=== PATIENT | male | born 1955 | race Hispanic/Latino ===

== ENCOUNTER 2017-04-23 06:00 | Emergency (ER) | payer BC ==
[2017-04-23 06:01] VITALS: BMI 33.3
[2017-04-23] MEDS ORDERED: Sodium Chloride 0.9% 2,000 ML IV STA (07:41)
--- NOTE | 2017-04-23 07:41 | ED PDOC ---
Arrival/HPI - General Chief Complaint: Fever Time Seen by Provider: 04/23/17 07:18 Historian: Patient, Family - History of Present Illness Narrative History of Present Illness (Text): 04/23/17 07:20 Harshil Gregorio is a 61 year old male, who presents to the emergency department accompanied by family, with complaints of vomiting and fatigue since early this morning. Family member reports patient went to their PMD two weeks ago who prescribed him medication for the flu, but no improvement has been made. She also states finding patient in the bathroom floor because he was too weak to get up after vomiting. Patient has been nauseous since yesterday and notes having a fever all week. Patient denies shortness of breath, chest pain, headache, or other complaints. PMD: Dr. Rooney Time/Duration: > week Symptom Onset: Gradual Symptom Course: Worsening Context: Home Past Medical History - Provider Review Nursing Documentation Reviewed: Yes - Past History Past History: No Previous - Infectious Disease Hx of Infectious Diseases: None - Tetanus Immunization Tetanus Immunization: Unknown - Cardiac Hx Cardiac Disorders: No - Pulmonary Hx Respiratory Disorders: No - Neurological Hx Neurological Disorder: No - HEENT Hx HEENT Disorder: No - Renal Hx Renal Disorder: No - Endocrine/Metabolic Hx Endocrine Disorders: No - Hematological/Oncological Hx Blood Disorders: No - Integumentary Hx Dermatological Disorder: No - Musculoskeletal/Rheumatological Hx Musculoskeletal Disorders: No - Gastrointestinal Hx Gastrointestinal Disorders: No - Genitourinary/Gynecological Hx Genitourinary Disorders: No - Psychiatric Hx Psychophysiologic Disorder: No Hx Depression: No Hx Emotional Abuse: No Hx Physical Abuse: No Hx Substance Use: No - Past Surgical History Past Surgical History: No Previous - Surgical History Other/Comment: sinus - Anesthesia Hx Anesthesia: Yes Hx Anesthesia Reactions: No Hx Malignant Hyperthermia: No - Suicidal Assessment Feels Threatened In Home Enviroment: No Family/Social History - Physician Review Nursing Documentation Reviewed: Yes Family/Social History: Unknown Family HX Smoking Status: Never Smoked Hx Alcohol Use: No Hx Substance Use: No Hx Substance Use Treatment: No Allergies/Home Meds Allergies/Adverse Reactions: Allergies Penicillins Adverse Reaction (Verified 04/23/17 06:18) VOMITING Home Medications: Home Meds Medication Instructions Recorded Confirmed Cephalexin [cephalexin] 500 mg PO Q12H 04/23/17 04/23/17 Review of Systems - Review of Systems Constitutional: Fatigue, Fevers ENT: absent: Sore Throat Respiratory: absent: SOB Cardiovascular: absent: Chest Pain Gastrointestinal: Nausea, Vomiting. absent: Diarrhea Genitourinary Male: absent: Dysuria Musculoskeletal: absent: Back Pain Skin: absent: Rash Neurological: absent: Dizziness Endocrine: absent: Diaphoresis Hemo/Lymphatic: absent: Adenopathy Physical Exam Vital Signs Reviewed: Yes Vital Signs Temp Pulse Resp BP Pulse Ox 04/23/17 10:11 98.3 F 72 18 103/54 L 95 04/23/17 08:13 79 18 122/66 95 04/23/17 06:13 98.3 F 89 18 117/79 96 Temperature: Afebrile Blood Pressure: Normal Pulse: Regular Respiratory Rate: Normal Appearance: Positive for: Well-Appearing, Non-Toxic, Comfortable Pain Distress: None Mental Status: Positive for: Alert and Oriented X 3 - Systems Exam Head: Present: Atraumatic, Normocephalic Pupils: Present: PERRL Extroacular Muscles: Present: EOMI Conjunctiva: Present: Normal Respiratory/Chest: Present: Clear to Auscultation, Good Air Exchange. No: Respiratory Distress, Accessory Muscle Use, Wheezes, Rales, Retracting, Rhonchi Cardiovascular: Present: Regular Rate and Rhythm, Normal S1, S2. No: Murmurs Abdomen: Present: Normal Bowel Sounds. No: Tenderness, Distention, Peritoneal Signs, Rebound, Guarding Neurological: Present: GCS=15, CN II-XII Intact, Speech Normal Skin: Present: Warm, Dry, Normal Color. No: Rashes Psychiatric: Present: Alert, Oriented x 3, Normal Insight, Normal Concentration Medical Decision Making ED Course and Treatment: 04/23/17 Impression: 61 year old male with unremarkable physical exam complaining of vomiting, weakness, and fever. Plan: -- EKG -- Chest X-ray -- Labs -- Toradol, Zofran, and Sodium Chloride -- Urinalysis -- Reassess and disposition Progress Notes: 04/23/17 EKG: Ordered, reviewed, and independently interpreted the EKG. Rate : 92 BPM Rhythm : NSR Interpretation : No ST-segment elevations or depressions, no T-wave inversions, normal intervals. 04/23/17 08:40 Chest X-ray: Creator : Ender Lewis MD COMPARISON: 05/30/2015 FINDINGS: LUNGS: No active pulmonary disease. PLEURA: No significant pleural effusion identified, no pneumothorax apparent. CARDIOVASCULAR: Normal. OSSEOUS STRUCTURES: No significant abnormalities. VISUALIZED UPPER ABDOMEN: Normal. OTHER FINDINGS: None. IMPRESSION: No active disease. 04/23/17 11:[address] Rooney, patient's PMD, who is aware of plan and treatment. He agrees to see him in the office tomorrow morning. On reevaluation the patient feels better and is in no acute distress. I have discussed the results and plan with the patient, who expresses understanding. Patient given the opportunity to ask question, all questions were answered and there is agreement with the plan to discharge the patient home with prescription for antibiotics to treat UTI. Patient is stable for discharge. Patient was instructed to follow up with PMD. - Lab Interpretations Lab Results: 04/23/17 06:30 04/23/17 06:30 Lab Results 04/23/17 09:10: Influenza Typ A,B (EIA) Negative for flu a/b 04/23/17 08:20: Urine Color Dark yellow, Urine Appearance Slight-cloudy, Urine pH 5.5, Ur Specific [place] 1.025, Urine Protein 30 H, Urine Glucose (UA) Negative, Urine Ketones Trace H, Urine Blood Negative, Urine Nitrate Positive H , Urine Bilirubin Moderate H, Urine Urobilinogen 2.0 H, Ur Leukocyte Esterase Negative, Urine RBC Negative, Urine WBC 2 - 5, Ur Epithelial Cells None 04/23/17 06:30: Sodium 137, Chloride 101, Potassium 3.4 L, Carbon Dioxide 24, Anion Gap 15, BUN 14, Creatinine 1.3, Est GFR ( Amer) > 60, Est GFR (Non- Af Amer) 56, Random Glucose 166 H, Calcium 9.5, Total Bilirubin 2.3 H, AST 98 H , ALT 223 H, Alkaline Phosphatase 197 H, Lactate Dehydrogenase 782 H, Total Creatine Kinase 33 L, Troponin I < 0.01, NT-Pro-B Natriuret Pep 390, Total Protein 6.3, Albumin 3.4, Globulin 2.9, Albumin/Globulin Ratio 1.2 04/23/17 06:30: pO2 48, VBG pH 7.42, VBG pCO2 40.0, VBG HCO3 25.9, VBG Total CO2 27.1, VBG O2 Sat (Calc) 88.3 H, VBG Base Excess 1.3, VBG Potassium 3.8, Sodium 134.0, Chloride 102.0, Glucose 175 H, Lactate 2.0, FiO2 21.0, Venous Blood Potassium 3.8 04/23/17 06:30: PT 12.8 H, INR 1.11 H 04/23/17 06:30: WBC 5.2, RBC 4.69, Hgb 15.2, Hct 41.7 L, MCV 88.9, MCH 32.4, MCHC 36.5, RDW 13.2, Plt Count 115 L, MPV 11.7 H, Gran % 80.9 H, Lymph % (Auto) 10.6 L, [place] % (Auto) 8.3 H, Eos % (Auto) 0.0 L, Baso % (Auto) 0.2, Gran # 4.19 , Lymph # (Auto) 0.6 L, [place] # (Auto) 0.4, Eos # (Auto) 0.0, Baso # (Auto) 0.01 I have reviewed the lab results: Yes - RAD Interpretation Radiology Orders: 04/23/17 07:19 CHEST PORTABLE [RAD] Stat Lead Loader: Radiologist - EKG Interpretation Interpreted by ED Physician: Yes Type: 12 lead EKG - Medication Orders Current Medication Orders: Discontinued Medications Sodium Chloride (Sodium Chloride 0.9%) 2,000 mls @ 999 mls/hr IV .Q2H1M STA Stop: 04/23/17 09:41 Last Admin: 04/23/17 07:47 Dose: 999 mls/hr eMAR Start Stop Document 04/23/17 07:47 LISA (Rec: 04/23/17 07:48 LISA [id number]) Intravenous Solution Start Date 04/23/17 Start Time 07:48 End Date 04/23/17 End time 08:48 Total Infusion Time 60 Ketorolac Tromethamine (Toradol) 30 mg IVP STAT STA Stop: 04/23/17 07:42 Last Admin: 04/23/17 07:47 Dose: 30 mg MAR Pain Assessment Document 04/23/17 07:47 LISA (Rec: 04/23/17 07:47 LISA [id number]) Pain Reassessment Is this a pain reassessment? No Sleep Is patient sleeping during reassessment? No Presence of Pain Presence of Pain Yes IVP Administration Document 04/23/17 07:47 SZA (Rec: 04/23/17 07:47 SZA [id number]) Charges for Administration # of IVP Administrations 1 Levofloxacin/Dextrose (Levaquin 750mg) 750 mg IVPB ONCE ONE Stop: 04/23/17 09:21 Last Admin: 04/23/17 09:37 Dose: 750 mg eMAR Start Stop Document 04/23/17 09:37 MS (Rec: 04/23/17 09:38 MS [id number] Intravenous Solution Start Date 04/23/17 Start Time 09:37 End Date 04/23/17 End time 11:07 Total Infusion Time 90 Ondansetron HCl (Zofran Inj) 4 mg IVP STAT STA Stop: 04/23/17 07:42 Last Admin: 04/23/17 07:47 Dose: 4 mg IVP Administration Document 04/23/17 07:47 SZCipriano (Rec: 04/23/17 07:47 SZA [id number]) Charges for Administration # of IVP Administrations 1 - Scribe Statement The provider has reviewed the documentation as recorded by the Loriibe Mitzy Martinez Provider Scribe Attestation: All medical record entries made by the Scribe were at my direction and personally dictated by me. I have reviewed the chart and agree that the record accurately reflects my personal performance of the history, physical exam, medical decision making, and the department course for this patient. I have also personally directed, reviewed, and agree with the discharge instructions and disposition. Disposition/Present on Arrival - Present on Arrival Any Indicators Present on Arrival: No History of DVT/PE: No History of Uncontrolled Diabetes: No Urinary Catheter: No History of Decub. Ulcer: No History Surgical Site Infection Following: None - Disposition Have Diagnosis and Disposition been Completed?: Yes Diagnosis: Pyelonephritis Disposition: HOME/ ROUTINE Disposition Time: 11:43 Patient Plan: Discharge Condition: STABLE Discharge Instructions (ExitCare): Urinary Tract Infection, Adult (DC), Kidney Infection (DC) Additional Instructions: Mr Nunes- You have a kidney/bladder infection. Levaquin is an antibiotic. Stop the medicine you doctor gave you on Thursday. Dr Rooney said he will see you in the office tomorrow. Zofran ODT is for nausea. Best- Dr. Angelo Steel Prescriptions: levoFLOXacin [Levaquin] 750 mg PO DAILY #10 tab Ondansetron ODT [Zofran ODT] 8 mg PO TID #30 odt Referrals: Jayme Rooney MD [Primary Care Provider] - Follow up with primary Forms: [employer] (Lao)
[2017-04-23 08:00] LABS: BASO # 0.01 K/mm3 (0.0-2.0); BASO % 0.2 % (0.0-3.0); GRAN # 4.19 (1.4-6.5); GRAN % 80.9 % (50.0-68.0); HEMOGLOBIN 15.2 g/dL (14.0-18.0); LYMPH # 0.6 (1.2-3.4); LYMPH % 10.6 % (22.0-35.0); MEAN CELL VOLUME 88.9 fl (80.0-105.0); MEAN CORPUSCULAR HEMOGLOBIN 32.4 pg (25.0-35.0); MEAN CORPUSCULAR HGB CONC 36.5 g/dl (31.0-37.0); MEAN PLATELET VOLUME 11.7 fl (7.0-11.0); MONO # 0.4 (0.1-0.6); MONO % 8.3 % (1.0-6.0); RBC 4.69 10^6/uL (3.5-6.1); RED CELL DISTRIBUTION WIDTH 13.2 % (11.5-14.5); VENOUS BLOOD GAS BASE EXCESS 1.3 mmol/L (0.0-2.0); VENOUS BLOOD GAS PO2 48 mm/Hg (30-55); VENOUS BLOOD PH 7.42 (7.32-7.43); WHITE BLOOD COUNT 5.2 10^3/ul (4.5-11.0)
[2017-04-23 08:06] LABS: INR 1.11 (0.93-1.08); PROTHROMBIN TIME 12.8 SECONDS (9.4-12.5)
[2017-04-23 08:10] LABS: ALB/GLOB RATIO 1.2 (1.1-1.8); ALBUMIN 3.4 g/dL (3.0-4.8); ALT/SGPT 223 U/L (7-56); AST/SGOT 98 U/L (17-59); BLOOD UREA NITROGEN 14 mg/dL (7-21); CALCIUM 9.5 mg/dL (8.4-10.5); GFR AFRICAN-AMERICAN > 60; GFR NON-AFRICAN AMERICAN 56
[2017-04-23 08:22] LABS: B-TYPE NATRIURETIC PEPTIDE 390 pg/mL (0-450); TROPONIN I < 0.01 ng/mL
--- NOTE | 2017-04-23 08:32 | RAD ---
HISTORY: fever/malaise COMPARISON: 05/30/2015 FINDINGS: LUNGS: No active pulmonary disease. PLEURA: No significant pleural effusion identified, no pneumothorax apparent. CARDIOVASCULAR: Normal. OSSEOUS STRUCTURES: No significant abnormalities. VISUALIZED UPPER ABDOMEN: Normal. OTHER FINDINGS: None. IMPRESSION: No active disease.
[2017-04-23 08:38] LABS: PH,URINE 5.5 (4.7-8.0); URINE BILIRUBIN MODERATE (NEGATIVE); URINE BLOOD NEGATIVE (NEGATIVE); URINE GLUCOSE (UA) NEGATIVE (NEGATIVE); URINE LEUKOCYTE ESTERASE NEGATIVE Leu/uL (NEGATIVE); URINE NITRATE POSITIVE (NEGATIVE); URINE PROTEIN 30 mg/dL (<30 mg/dL)
[2017-04-23 08:39] LABS: URINE APPEARANCE SLIGHT-CLOUDY (CLEAR); URINE COLOR DARK YELLOW (YELLOW)
[2017-04-23 08:46] LABS: URINE RBC NEGATIVE /hpf (0-2)
[2017-04-23] MEDS ORDERED: levoFLOXacin 750 mg in D5W 150 ML BAG IVPB ONE (09:20)
[2017-04-23 12:46] VITALS: BP 117/63; PULSE 86; RESP 16; TEMP 97.9; O2SAT 99
--- NOTE | 2017-04-23 19:02 | CARD ---
APPROVED REPORT EKG Measurement Heart [id number] MA [id number] [id number] <Conclusion> Normal sinus rhythm Normal ECG
== END 2017-04-23 12:47 | disposition home or self-care (01) ==
LOC: ED 06:00
DX: N10 Acute pyelonephritis (principal)
CPT/HCPCS: 71045; 80053; 81001; 82550; 82803; 83615; 83880; 84484; 85025; 85610; 87040; 87086; 87804; 93005; 96361; 96365; 96375; 99285; J1885; J2405; J7040

== ENCOUNTER 2018-07-16 06:08 | Day surgery (SDC) | payer BC ==
[2018-07-08 08:54] VITALS: BMI 34.7
[2018-07-16] MEDS ORDERED: Lidocaine 1% w Epi 1:100,000 Inj ONE (07:31)
[2018-07-16] MEDS ORDERED: Bupivacaine 0.5% 50 ML IJ ONE (07:31)
[2018-07-16] MEDS ORDERED: Propofol 10 mg/ml Inj (20 ML) ONE (07:32)
[2018-07-16] MEDS ORDERED: Midazolam 2 MG/2 ML VIAL ONE (07:33)
[2018-07-16] MEDS ORDERED: Lidocaine 1% Inj (20ml) ONE (07:33)
[2018-07-16] MEDS ORDERED: Lidocaine 1% w Epi 1:100,000 Inj IJ ONE (08:16)
[2018-07-16] MEDS ORDERED: Oxycodone/Acetaminophen 5/325 mg Tab PO PRN (08:49)
--- NOTE | 2018-07-16 08:51 | PCM.SURG1 ---
Surgeon's Initial Post Op Note - Surgeon's Notes Surgeon: Tari Christina MD Retail Client Manager: Oscar Rose PA-c Type of Anesthesia: General Endo Pre-Operative Diagnosis: right knee medial mensicus tear Operative Findings: see full note Post-Operative Diagnosis: same Operation Performed: right knee arthroscopy with medial meniscectomy Specimen/Specimens Removed: none Estimated Blood Loss: EBL {In ML}: 2 Blood Products Given: N/A Drains Used: No Drains Post-Op Condition: Fair Date of Surgery/Procedure: 07/16/18 Time of Surgery/Procedure: 08:51
[2018-07-16] MEDS ORDERED: HYDROmorphone 0.5 mg/0.5 ml ISec IVP PRN (08:54)
[2018-07-16] MEDS ORDERED: Lactated Ringer's 1,000 ML IV SCH (09:00)
[2018-07-16 09:39] VITALS: O2SAT 96
[2018-07-16 10:03] VITALS: PULSE 60; RESP 16; TEMP 96.9
[2018-07-16 10:15] VITALS: BP 130/79
--- NOTE | 2018-07-16 17:51 | OP ---
PROCEDURE DATE: 07/16/2018 PREOPERATIVE DIAGNOSES: Right knee medial meniscal tear and degenerative joint disease. 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 PROCEDURE: Right knee arthroscopy with medial meniscectomy. SURGEON: Judd Christina MD. Dr. Christina was assisted by Beth Rose, the physician assistant engineer. Ms. Rose scrubbed and present throughout the entire case and assisted in patient positioning, manipulation of the extremity, and wound closure. TYPE OF ANESTHESIA: General. COMPLICATIONS: None. ESTIMATED BLOOD LOSS: 5 mL. INDICATION FOR PROCEDURE: This is a 63-year-old gentleman presented with complaints of right knee pain. Clinical examination is consistent with significant medial joint line tenderness and possible Thomas's, pain at the extreme of knee flexion. Radiographic and MRI examination consistent with some degenerative joint disease and a complex tear of the posterior horn of the medial meniscus. After a period of failed nonsurgical management, recommendations for right knee arthroscopy. The risks, benefits and alternatives of the procedure were discussed with the patient and informed consent was obtained. DESCRIPTION OF PROCEDURE: After the surgical site was signed and verified in the preoperative holding area, the patient was taken to the operating room and placed supine on the operating room table. After administration of general anesthesia, the patient received 600 mg of clindamycin IV. A tourniquet was placed about the right thigh. Lateral was placed along the thigh and care was taken to make sure all bony prominences and nerves were well padded and protected and the right lower extremity was prepped and draped in usual sterile fashion. The bony landmarks were identified about the right knee and portal sites were injected with a total of 10 mL of 1% lidocaine with epinephrine. An anterior lateral arthroscopy port was established and arthroscope was inserted into the knee joint. Patellofemoral articulation was evaluated. 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 The knee was taken through the range of motion and patella was noted to retract normally. The medial and lateral gutters as well as suprapatellar recess were noted to be free of any loose bodies or pathologic plica. Next, the medial compartment was evaluated. Through the anteromedial port, the medial meniscus was probed, the patient was noted to have complex tear in the posterior horn of the meniscus affecting the mid portion of the meniscus. Using a combination of basket forceps and a full-radius shaver, a meniscectomy was performed, resecting the posterior back to a small, but stable rim. Significant chondrocalcinosis and calcium deposit was also noted throughout the meniscus and a loose calcium was debrided using shaver. The chondral surface of the medial femoral condyle and the medial tibial plateau were again noted to have some grade 2 chondromalacia with some fissuring noted on the nonweightbearing portion of the medial femoral condyle. Next, the intercondylar notch was evaluated. ACL was well visualized, probed and appeared to be intact. The PCL was also visualized and appeared to be intact. Next, lateral compartment was evaluated. Again, the patient was noted to have calcium deposits throughout the meniscus, but no obvious tears were appreciated. A few calcium deposits at the free edge of the meniscus were debrided. The cartilage of the lateral tibial plateau had some grade 2 chondromalacia and some grade 1 chondromalacia on the lateral femoral condyle. At this point, the knee joint was irrigated through the arthroscopic cannula and all the instruments were removed. All portal sites were closed using interrupted 3-0 Vicryl and Dermabond for the skin. A sterile dressing was applied. The patient was awakened from the procedure and taken to the recovery room in stable condition. Judd Christina MD
== END 2018-07-16 10:45 | disposition home or self-care (01) ==
LOC: SDS 06:08
PROVIDERS: ATTEND Orthopaedic Surgery
DX: M23.321 Other meniscus derangements, posterior horn of medial meniscus, right knee (principal); M17.11 Unilateral primary osteoarthritis, right knee; M11.261 Other chondrocalcinosis, right knee; M22.41 Chondromalacia patellae, right knee
CPT/HCPCS: 29881; 97116; 97161; G8978; G8979; J1170; J1885; J2250; J2405; J2704; J2765; J3010; J7120 ×2